=== PATIENT | male | born 1995 | race American Indian/Alaskan Native ===

== ENCOUNTER 2016-12-05 06:40 | Emergency (ER) | payer SELFPAY ==
[2016-12-05] MEDS ORDERED: TORADOL IM ONE (08:24)
--- NOTE | 2016-12-05 08:52 | Emergency Department Report ---
HPI - General Chief Complaint: Extremity Injury, Upper Time Seen by Provider: 12/05/16 08:14 - HPI HPI: 21-year-old male presents today with right hand swelling and pain 2 days. Patient states that he fell off a 10 foot without any 2 days ago and landed on his right hand in a fist position. Denies head injury or loss of consciousness. Denies back or neck pain. Describes his pain as a sharp 5 out of 10 at rest and 10 out of 10 with movement. Denies numbness, weakness, paresthesias. Denies trying any medication for pain relief. Denies fever, chills, nausea, vomiting, chest pain, shortness of breath, abdominal pain. ED Past Medical Hx - Past Medical History Previous Medical History?: No - Surgical History Past Surgical History?: No - Social History Smoking Status: Never Smoker Substance Use Type: None - Medications Home Medications: Home Medications Medication Instructions Recorded Confirmed Last Taken Type HYDROcodone/APAP 5-325 [[place] 1 each PO Q6HR PRN #20 tab 12/05/16 Unknown Rx 5/325] Ibuprofen [Motrin 800 MG tab] 800 mg PO Q8HR PRN #30 tablet 12/05/16 Unknown Rx ED Review of Systems ROS: Stated complaint: PAIN RT HAND Other details as noted in HPI Constitutional: denies: chills, fever, malaise Eyes: denies: eye pain ENT: denies: ear pain, throat pain, congestion Respiratory: denies: cough, shortness of breath, wheezing Cardiovascular: denies: chest pain, palpitations Endocrine: no symptoms reported Gastrointestinal: denies: abdominal pain, nausea, vomiting Musculoskeletal: joint swelling, arthralgia Skin: denies: rash Neurological: denies: headache, weakness, numbness, paresthesias Physical Exam - Physical Exam Vital Signs: Vital Signs 12/05/16 07:26 Temperature 97.9 F Pulse Rate 64 Respiratory 18 Rate Blood Pressure 138/81 O2 Sat by Pulse 97 Oximetry Physical Exam: GENERAL: The patient is well-developed and well-nourished. Patient is in NAD. HEAD: Normocephalic. Atraumatic. NECK: Full range of motion. No midline or paraspinal tenderness to palpation. CHEST/LUNGS: Clear to auscultation throughout. HEART/CARDIOVASCULAR: Regular rate and rhythm. ABDOMEN: Abdomen is soft, nontender. No guarding or rebound tenderness. RIGHT HAND: Limited range of motion due to pain. Tenderness to palpation over the fourth and fifth distal metacarpal bones. Positive for edema. Normal sensation. 2 point discrimination intact. Peripheral pulses intact. Capillary refill less than 2 seconds. NEURO: Alert and oriented x 3. Normal gait. ED Course Vital Signs 12/05/16 07:26 Temperature 97.9 F Pulse Rate 64 Respiratory 18 Rate Blood Pressure 138/81 O2 Sat by Pulse 97 Oximetry ED Medical Decision Making - Lab Data Vital Signs 12/05/16 07:26 Temperature 97.9 F Pulse Rate 64 Respiratory 18 Rate Blood Pressure 138/81 O2 Sat by Pulse 97 Oximetry - Radiology Data Radiology results: report reviewed EXAM: XR HAND 3 RT HISTORY: swelling and pain over 4th-5th metacarpal s/p fall TECHNIQUE: Five views right hand. PRIORS: None currently available. FINDINGS: Comminuted fracture of the distal aspect of the 5th metacarpal does not demonstrate intra-articular extension. Ventral angulation identified. No other fractures are evident. Soft tissue swelling noted. Joints in anatomical alignment. No significant arthrosis. There is no acute dislocation. There is no cortical destruction to suggest osteomyelitis. There are no suspicious osseous lesions. There are no radiopaque foreign objects. IMPRESSION: Fifth metacarpal fracture. - Medical Decision Making 21-year-old male presents today with right hand swelling and pain post fall. His x-ray results reveal a comminuted fracture of the distal aspect of the fifth metacarpal. Patient has been put in a ulnar gutter splint. A referral for orthopedic has been provided. Patient is in no acute distress at this time. He will be discharged home and is encouraged to follow up with a primary care provider. He will be sent home on [place] and ibuprofen and is encouraged to return to the emergency room for any worsening symptoms. Critical care attestation.: If time is entered above; I have spent that time in minutes in the direct care of this critically ill patient, excluding procedure time. ED Disposition Clinical Impression: Fracture of fifth metacarpal bone Qualifiers: Encounter type: initial encounter Fracture type: closed Metacarpal location: unspecified portion of metacarpal Fracture alignment: nondisplaced Laterality: right Qualified Code(s): S62.306A - Unspecified fracture of fifth metacarpal bone, right hand, initial encounter for closed fracture Disposition: DISCHARGED TO HOME OR SELFCARE Is pt being admited?: No Does the pt Need Aspirin: No Condition: Stable Instructions: Hand Fracture (ED), Boxer Fracture (ED) Additional Instructions: Follow with primary care provider and orthopedic. Return to the emergency department if symptoms worsen. Prescriptions: Ibuprofen [Motrin 800 MG tab] 800 mg PO Q8HR PRN #30 tablet PRN Reason: Pain HYDROcodone/APAP 5-325 [[place] 5/325] 1 each PO Q6HR PRN #20 tab PRN Reason: Pain Referrals: PRIMARY CARE, [Primary Care Provider] - 3-5 Days MINOO BALL MD [Staff Physician] - 3-5 Days Forms: Work/School Release Form(ED) Time of Disposition: 09:32
--- NOTE | 2016-12-05 09:13 | XRay Report ---
FINAL REPORT EXAM: XR HAND 3 RT HISTORY: swelling and pain over 4th-5th metacarpal s/p fall TECHNIQUE: Five views right hand. PRIORS: None currently available. FINDINGS: Comminuted fracture of the distal aspect of the 5th metacarpal does not demonstrate intra-articular extension. Ventral angulation identified. No other fractures are evident. Soft tissue swelling noted. Joints in anatomical alignment. No significant arthrosis. There is no acute dislocation. There is no cortical destruction to suggest osteomyelitis. There are no suspicious osseous lesions. There are no radiopaque foreign objects. IMPRESSION: Fifth metacarpal fracture.
[2016-12-05 09:44] VITALS: BP 130/78
== END 2016-12-05 09:42 | disposition home or self-care (01) ==
LOC: ED 06:40
DX: S62.306A Unspecified fracture of fifth metacarpal bone, right hand, initial encounter for closed fracture (principal); W18.30XA Fall on same level, unspecified, initial encounter; Y93.9 Activity, unspecified; Y92.9 Unspecified place or not applicable; Y99.9 Unspecified external cause status
CPT/HCPCS: 29125; 73130; 96372; 99283; J1885